=== PATIENT | male | born 1990 | race African-American/Black ===

== ENCOUNTER 2017-11-22 16:35 | Emergency (ER) | payer MEDICAID, MEDICARE ==
[~2017-11-22] VITALS: Ht 170.2 cm; Wt 60.0 kg
[2017-11-22] MEDS ORDERED: AZITHROMYCIN 500 MG TABLET PO ONE (19:15)
[2017-11-22] MEDS ORDERED: CEFTRIAXONE SODIUM 1 G/VIAL IM ONE (19:15)
[2017-11-22 19:21] VITALS: BP 113/83
[2017-11-25 04:16] LABS: CHLAMYDIA TRACHOMATIS NAA Negative (Negative); NEISSERIA GONORRHOEAE NAA Positive (Negative)
== END 2017-11-22 19:23 | disposition home or self-care (01) ==
LOC: ER 17:41
DX: R19.00 Intra-abdominal and pelvic swelling, mass and lump, unspecified site (principal); F17.200 Nicotine dependence, unspecified, uncomplicated
CPT/HCPCS: 87491; 87591; 96372; 99284; J0696